=== PATIENT | female | born 1955 | race Caucasian/White ===

== ENCOUNTER → 2021-11-20 12:02 | Outpatient (CLI) | payer OTHER, MEDICAID, SELFPAY ==
--- NOTE | 2021-11-20 | DI.MRI.S_ITS ---
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 TECHNIQUE: The patient was placed prone in a dedicated breast imaging coil. Precontrast axial STIR and 3D FLASH without fat saturation sequences were obtained. Both before and after bolus injection of contrast, sequential 1-minute axial 3D FLASH with fat saturation sequences for 3 time points, with subtraction images and maximum intensity projections (MIP's) generated. Delayed sagittal FLASH images with fat saturation were also obtained. Computer-aided detection, including computer algorithm analysis of MRI image data for lesion detection and characterization, pharmacokinetic analysis, with further physician review for interpretation, was performed. COMPARISON: [facility], MG, MG ADDITIONAL VIEWS DIGITAL BREAST TOMOSYNTHESIS LEFT, 10/11/2021, 13:12. Outside Film, MG, MG SCREENING BILATERAL, 08/12/2012, 13:15. [facility], MG, MG SCREENING BILATERAL DIGITAL BREAST TOMOSYNTHESIS, 09/27/2021, 13:56. [facility], US, US BREAST LIMITED LEFT, 10/11/2021, 14:09. Image quality: Excellent. There is minimal background parenchymal enhancement. There is scattered fibroglandular tissue in the bilateral breast. Right breast: No suspicious mass, architectural distortion, or non-mass enhancement. No skin abnormality seen. There is suggestion of minimal nipple retraction without associated nipple abnormalities or abnormal nipple enhancement. Compared to the left breast, this is less prominent. No axillary or internal mammary chain adenopathy. Left breast: There is extensive, diffuse non-mass enhancement involving the inferior aspect of the left breast, most pronounced over the lower inner quadrant. Distribution of non-mass enhancement is similar to distribution of previously described segmental coarse, pleomorphic calcifications which correlate with biopsy-proven malignancy. Biopsy was performed in the anterior and posterior margins of these calcifications with biopsy markers noted approximately 3.4 cm apart from each other on mammographic evaluation. Distribution of calcifications span approximately 8.6 cm in maximum AP diameter, 6.6 cm in craniocaudal dimension, and 10.9 cm in transverse dimension on mammographic evaluation. By MRI, non-mass enhancement extends approximately 9.5 cm in AP dimension (sagittal image 66/series 18), 6.5 cm in craniocaudal dimension (sagittal image 62/series 18) and approximately 6.3 cm in transverse dimension (axial image 33/series 6). Additionally, there is asymmetric retraction of the left nipple with non-mass enhancement extending to approximately 1.3 cm behind the nipple. No abnormal nipple enhancement. No suspicious skin enhancement. Biopsy markers demonstrate mild cephalad migration as noted on biopsy report. The anterior biopsy marker is approximately 3.0 cm cephalad to the epicenter of original biopsy site and approximately 1.1 cm cephalad to the original biopsy site posteriorly. Otherwise, no suspicious mass or architectural distortion. No axillary or internal mammary chain adenopathy. Miscellaneous: Visualized structures of the upper abdomen and chest appear unremarkable. IMPRESSION: KNOWN BIOPSY PROVEN MALIGNANCY 1. Extensive non-mass enhancement of the left breast predominantly involving the inferior aspect (lower-inner quadrant) correlating with biopsy-proven malignancy. The extent and size of non-mass enhancement closely approximates the distribution of calcifications seen mammographically. Of note, the anterior and posterior margins of the calcifications were biopsied. Additionally, there is asymmetric left nipple retraction with non-mass enhancement extending to within 1.3 cm behind the nipple. No suspicious nipple or skin enhancement. No evidence for contralateral disease or axillary/internal mammary adenopathy. 2. Right breast without MRI evidence for malignancy. COMMENT: The imaging literature indicates that a negative contrast breast MRI examination has a high sensitivity and a moderate specificity for detecting and excluding invasive carcinomas to a detection threshold of 3-5 mm; nonetheless, appropriate clinical and mammographic follow-up are recommended. MRI is not sensitive for detecting DCIS (ductal carcinoma in situ) and may not detect large invasive neoplasms that show only minimal enhancement such as mucinous carcinoma. If there are suspicious calcifications or clinically worrisome palpable masses, then biopsy should still be considered. Invasive neoplasms can be hidden by co-existent and benign enhancement caused by mastitis, hormone therapy effects, radiation therapy, , and recent biopsy or surgery. False positive examinations can occur in a number of circumstances, including breasts that have recently been subject to invasive procedures and those that contain atypical ductal hyperplasia, hormonally stimulated glandular tissue, fat necrosis, or radial scars. This exam was interpreted at Station ID: [id number]. Electronically Signed By: Frederick Perez M.D. aty/:11/20/2021 16:59:15 ACR BI-RADS Category 6: Known biopsy proven malignancy [id number]
== END ==
PROVIDERS: PCP Registered Nurse; Referring Provider Registered Nurse; Visit Provider Registered Nurse
DX: D05.12 Intraductal carcinoma in situ of left breast (principal)
CPT/HCPCS: 77049; A9579

== ENCOUNTER → 2023-08-29 11:53 | Outpatient (CLI) | payer MEDICARE, MEDICAID, SELFPAY ==
--- NOTE | 2023-08-29 11:57 | DI.MRI.S_ITS ---
BREAST MRI OF BOTH BREASTS- POST MASTECTOMY: 08/29/2023 CLINICAL: Personal history of in situ neoplasm of breast. PROCEDURE: MR BREAST BI WO/W CON INDICATIONS: Personal history of in-situ neoplasm of breast TECHNIQUE: The patient was placed prone in a dedicated breast imaging coil. Precontrast axial STIR and 3D FLASH without fat saturation sequences were obtained. Both before and after bolus injection of contrast, sequential 1-minute axial 3D FLASH with fat saturation sequences for 3 time points, with subtraction images and maximum intensity projections (MIP's) generated. Delayed sagittal FLASH images with fat saturation were also obtained. Computer-aided detection, including computer algorithm analysis of MRI image data for lesion detection and characterization, pharmacokinetic analysis, with further physician review for interpretation, was performed. COMPARISON: [facility], , MR BREAST BI WO/W CON, 11/20/2021, 12:43. FINDINGS: Image quality: Excellent. There is mild background parenchymal enhancement. Right breast: 3 enhancing mass lesions are visualized within the right breast. A mass at 10:00 o'clock, at an anterior depth measures 0.7 x 0.7 x 0.7 cm and corresponds with the biopsy-proven neoplasm (series 5/image 69 and series 14/image 43). Slightly posterior and more central there is an enhancing mass which measures 0.9 x 0.9 x 0.9 cm and likely represents the 2nd hypoechoic mass visualized on the ultrasound dated July 17, 2023. This mass was not biopsied (series 5/image 67 and series 14/image 50). Posterior to this mass at 11:00 o'clock, middle depth there is a mass which measures 0.3 x 0.7 x 0.5 cm (series 5/image 67 and series 14/image 51). A subtle focus of enhancement which measures 6 x 4 mm is also present just anterior to the chest wall, deep to the nipple (series 5/image 74 and series 14/image 54). No other suspicious foci of enhancement within the right breast. Left breast: Patient is status post left mastectomy. Skin thickening is present throughout the reconstructed left breast. Miscellaneous: No left axillary adenopathy. 2 of the inferior right axillary lymph nodes lack the expected fatty hilum (series 5/image 100). However, these are not well characterized on the sagittal view. No intramammary adenopathy. Limited visualization of the heart, lungs, mediastinum and upper abdomen are unremarkable. IMPRESSION: INCOMPLETE: NEEDS ADDITIONAL IMAGING EVALUATION 1. 2 enhancing mass lesions visualized on the comparison ultrasound from July 17, 2023 as above. A 3rd enhancing focus is noted just posterior to these lesions which may represent a small intramammary lymph node or an additional mass. The entire AP extension of the enhancing focus measures 3.2 cm in diameter (seen on series 10/image 69). 2. Subcentimeter enhancing focus near the chest wall as described above. It is unclear whether this represents multifocal disease or may represent an intramammary lymph node. Second-look ultrasound of this region could be used if further characterization is warranted. 3. Findings suspicious for loss of central fatty hilum within 2 inferior right axillary lymph nodes as described above. Second-look ultrasound could be used to further characterize this finding as tona extension of disease cannot be excluded. Electronically Signed By: Lorraine Vizcaino M.D. lk/:08/29/2023 17:58:34 letter sent: Additional Imaging Needed ACR BI-RADS Category 0: Incomplete [id number]
== END ==
PROVIDERS: PCP Registered Nurse; Referring Provider Registered Nurse; Visit Provider Registered Nurse
DX: N64.89 Other specified disorders of breast (principal); Z86.000 Personal history of in-situ neoplasm of breast
CPT/HCPCS: 77049; A9579